=== PATIENT | female | born 1975 | race Caucasian/White ===

== ENCOUNTER 2022-09-24 06:59 | Outpatient (CLI) | payer BC, SELFPAY ==
--- NOTE | 2022-09-24 08:35 | W.ANESCHARGE ---
Anesthesia Charges Start Date/Time Anesthesia Start Date: 09/24/22 Anesthesia Start Time: 09:05 Stop Date/Time Anesthesia Stop Date: 09/24/22 Anesthesia Stop Time: 08:23
--- NOTE | 2022-09-24 08:59 | W.ANESCHARGE ---
Anesthesia Charges Start Date/Time Anesthesia Start Date: 09/24/22 Anesthesia Start Time: 08:05 Stop Date/Time Anesthesia Stop Date: 09/24/22 Anesthesia Stop Time: 08:23
--- NOTE | 2022-09-24 09:15 | W.ANESCHARGE ---
Anesthesia Charges Start Date/Time Anesthesia Start Date: 09/24/22 Anesthesia Start Time: 08:05 Stop Date/Time Anesthesia Stop Date: 09/24/22 Anesthesia Stop Time: 08:23
== END 2022-09-24 07:00 | disposition home or self-care (01) ==
PROVIDERS: PCP Family Medicine; Visit Provider Internal Medicine Gastroenterology
DX: R10.13 Epigastric pain (principal); K25.9 Gastric ulcer, unspecified as acute or chronic, without hemorrhage or perforation; K31.89 Other diseases of stomach and duodenum; R19.7 Diarrhea, unspecified; R63.4 Abnormal weight loss
CPT/HCPCS: 00731; 43239; 88305; J2704